=== PATIENT | female | born 1985 | race Caucasian/White ===

== ENCOUNTER 2016-09-09 10:18 | Observation (INO) | payer BC ==
--- NOTE | 2016-09-09 10:53 | EDM.PDOC ---
[id number] 4d CHEST PAIN Time Seen by Provider: 09/09/16 10:38 Source of Information: Reports: Patient, Family History Limitations: Reports: No Limitations - History of Present Illness INITIAL COMMENTS - FREE TEXT/NARRATIVE: pt arrived with chest pain and pressure over her left chest. She felt like her heart is racing. Onset: Sudden Duration: Hour(s):, Other (pt has chest pressure) Location: Reports: Chest Quality: Reports: Sharp, Stabbing Severity: Moderate Associated Symptoms: Reports: Chest Pain, Other (pt feels like she has palpatation.) Chest Pain Score (Numeric/FACES): 3 - Related Data Allergies Allergy/AdvReac Type Severity Reaction Status Date / Time No Known Allergies Allergy Verified 09/09/16 10:30 Home Meds: Home Meds NK [No Known Home Meds] 09/09/16 [History] Past Medical History Cardiovascular History: Reports: Other (See Below) Other Cardiovascular History: Manley syndrome. 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: Social & Family History - Tobacco Use Smoking Status *Q: Never Smoker - Recreational Drug Use Recreational Drug Use: No ED ROS GENERAL - Review of Systems Review Of Systems: See Below Constitutional: Reports: No Symptoms HEENT: Reports: No Symptoms Respiratory: Reports: No Symptoms Cardiovascular: Reports: Other ( chest pressure) Endocrine: Reports: No Symptoms GI/Abdominal: Reports: No Symptoms : Reports: No Symptoms Musculoskeletal: Reports: No Symptoms Skin: Reports: No Symptoms Neurological: Reports: No Symptoms ED EXAM, GENERAL - Physical Exam Exam: See Below Free Text/Narrative:: pt arrived feeling like her heart is racing and she has pressure across her entire ches. Exam Limited By: No Limitations General Appearance: Alert, Anxious, Moderate Distress, Other (pt is having pain accross he entire chest. ) Eye Exam: Right Eye: Papilledema Ears: Normal TMs Ear Exam: Bilateral Ear: Auricle Normal, Canal Normal, TM normal Nose: Normal Inspection Throat/Mouth: Normal Inspection Head: Atraumatic Neck: Normal Inspection Respiratory/Chest: No Respiratory Distress Cardiovascular: Irregularly Irregular, Other (pt is rapid at times) GI/Abdominal: Soft, Non-Tender Rectal (Female) Exam: Deferred Back Exam: Normal Inspection Extremities: Normal Inspection Neurological: Alert, Oriented, Normal Cognition Psychiatric: Normal Affect Course - Vital Signs Last Recorded V/S: Last Vital Signs Temp 36.6 C 09/10/16 07:44 Pulse 56 L 09/10/16 07:44 Resp 16 09/10/16 07:44 BP 107/75 09/10/16 07:44 Pulse Ox 96 09/10/16 07:44 - Orders/Labs/Meds Labs: Laboratory Tests 09/09/16 09/09/16 09/09/16 Range/Units 10:42 10:42 11:03 WBC 8.1 (4.5-11.0) K/uL RBC 4.52 (3.30-5.50) M/uL Hgb 13.7 (12.0-15.0) g/dL Hct 40.2 (36.0-48.0) % MCV 89 (80-98) fL MCH 30 (27-31) pg MCHC 34 (32-36) % Plt Count 249 (150-400) K/uL Neut % (Auto) 65 (36-66) % Lymph % (Auto) 24 (24-44) % Kings % (Auto) 9 H (2-6) % Eos % (Auto) 2 (2-4) % Baso % (Auto) 1 (0-1) % Sodium 141 (140-148) mmol/L Potassium 3.3 L (3.6-5.2) mmol/L Chloride 105 (100-108) mmol/L Carbon Dioxide 24 (21-32) mmol/L Anion Gap 15.3 H (5.0-14.0) mmol/L BUN 7 (7-18) mg/dL Creatinine 0.6 (0.6-1.0) mg/dL Est Cr Clr Drug Dosing 129.51 mL/min Estimated GFR (MDRD) > 60 (>60) Glucose 84 (74-106) mg/dL Calcium 8.7 (8.5-10.1) mg/dL Magnesium (1.8-2.4) mg/dL Total Bilirubin 0.6 (0.2-1.0) mg/dL AST 19 (15-37) U/L ALT 17 (12-78) U/L Alkaline Phosphatase 53 (46-116) U/L Troponin I 0.051 (0.000-0.056) ng/mL C-Reactive Protein (0.0-0.3) mg/dL Total Protein 7.4 (6.4-8.2) g/dL Albumin 4.1 (3.4-5.0) g/dL Globulin 3.3 (2.3-3.5) g/dL Albumin/Globulin Ratio 1.2 (1.2-2.2) Urine Color Yellow Urine Appearance Slightly cloudy Urine pH 7.0 (4.5-8.0) Ur Specific [place] 1.015 (1.008-1.030) Urine Protein Negative (NEGATIVE) mg/dL Urine Glucose (UA) Normal (NEGATIVE) mg/dL Urine Ketones Negative (NEGATIVE) mg/dL Urine Occult Blood Negative (NEGATIVE) Urine Nitrite Negative (NEGATIVE) Urine Bilirubin Negative (NEGATIVE) Urine Urobilinogen Normal (NORMAL) mg/dL Ur Leukocyte Esterase Negative (NEGATIVE) Urine RBC 0-5 (0-5) Urine WBC 0-5 (0-5) Ur Epithelial Cells Moderate Amorphous Sediment Not seen Urine Bacteria Not seen Urine Mucus Moderate 09/09/16 09/09/16 Range/Units 11:23 12:26 WBC (4.5-11.0) K/uL RBC (3.30-5.50) M/uL Hgb (12.0-15.0) g/dL Hct (36.0-48.0) % MCV (80-98) fL MCH (27-31) pg MCHC (32-36) % Plt Count (150-400) K/uL Neut % (Auto) (36-66) % Lymph % (Auto) (24-44) % Kings % (Auto) (2-6) % Eos % (Auto) (2-4) % Baso % (Auto) (0-1) % Sodium (140-148) mmol/L Potassium (3.6-5.2) mmol/L Chloride (100-108) mmol/L Carbon Dioxide (21-32) mmol/L Anion Gap (5.0-14.0) mmol/L BUN (7-18) mg/dL Creatinine (0.6-1.0) mg/dL Est Cr Clr Drug Dosing mL/min Estimated GFR (MDRD) (>60) Glucose (74-106) mg/dL Calcium (8.5-10.1) mg/dL Magnesium 1.9 (1.8-2.4) mg/dL Total Bilirubin (0.2-1.0) mg/dL AST (15-37) U/L ALT (12-78) U/L Alkaline Phosphatase (46-116) U/L Troponin I (0.000-0.056) ng/mL C-Reactive Protein 0.17 (0.0-0.3) mg/dL Total Protein (6.4-8.2) g/dL Albumin (3.4-5.0) g/dL Globulin (2.3-3.5) g/dL Albumin/Globulin Ratio (1.2-2.2) Urine Color Urine Appearance Urine pH (4.5-8.0) Ur Specific [place] (1.008-1.030) Urine Protein (NEGATIVE) mg/dL Urine Glucose (UA) (NEGATIVE) mg/dL Urine Ketones (NEGATIVE) mg/dL Urine Occult Blood (NEGATIVE) Urine Nitrite (NEGATIVE) Urine Bilirubin (NEGATIVE) Urine Urobilinogen (NORMAL) mg/dL Ur Leukocyte Esterase (NEGATIVE) Urine RBC (0-5) Urine WBC (0-5) Ur Epithelial Cells Amorphous Sediment Urine Bacteria Urine Mucus Meds: Medications Discontinued Medications Generic Name Dose Route Start Last Admin Trade Name Freq PRN Reason Stop Dose Admin Acetaminophen 650 mg 09/09/16 14:33 09/10/16 07:27 Tylenol PO 650 mg Q4H PRN Administration Pain (Mild 1-3)/fever Aspirin 324 mg 09/09/16 11:22 09/09/16 11:33 Aspirin PO 09/09/16 11:23 324 mg ONETIME ONE Administration Hydromorphone HCl 0.5 mg 09/09/16 12:51 09/09/16 12:55 Dilaudid IVPUSH 09/09/16 12:52 0.5 mg ONETIME ONE Administration Sodium Chloride 1,000 mls @ 400 mls/hr 09/09/16 12:00 09/09/16 12:13 Normal Saline IV 400 mls/hr ASDIRECTED LUKE Administration Ibuprofen 600 mg 09/09/16 14:33 09/10/16 09:37 Motrin PO 600 mg Q6H PRN Administration Pain/Fever Ketorolac Tromethamine 30 mg 09/09/16 11:57 09/09/16 12:17 Toradol IVPUSH 09/09/16 11:58 30 mg ONETIME ONE Administration Lorazepam 0.5 mg 09/09/16 14:33 Ativan PO Q4H PRN Anxiety Ondansetron HCl 4 mg 09/09/16 14:33 Zofran Odt PO Q6H PRN Nausea able to take PO Potassium Chloride 20 meq 09/09/16 11:13 09/09/16 11:33 Klor-Con M20 PO 09/09/16 11:14 20 meq ONETIME ONE Administration Potassium Chloride 40 meq 09/10/16 09:30 09/10/16 10:23 Klor-Con M20 PO 09/10/16 09:31 40 meq ONETIME ONE Administration - Re-Assessments/Exams Free Text/Narrative Re-Assessment/Exam: 09/09/16 13:13 Pt has a trop at the upper limits of normal, her k was borderline, She has continued to have the pressure. She was given torodol 30mg iv with no relief. She was given asa. She was given dilaudid .5 iv. Her chest xray did not show acute changes, Departure - Departure Time of Disposition: 07:45 Disposition: Admitted As Inpatient 68 Reason for Transfer *Q: Primary PCI Indicated Condition: Fair Clinical Impression: Dysrhythmia, Chest pain
[2016-09-09] MEDS ORDERED: Potassium Chloride 20 MEQ Tab.ER PO ONE (11:13)
[2016-09-09] MEDS ORDERED: Aspirin 81 MG Tab.Chew PO ONE (11:22)
[2016-09-09] MEDS ORDERED: Ketorolac 30 MG/ML SDV IVPUSH ONE (11:57)
[2016-09-09] MEDS ORDERED: Sodium Chloride 0.9% 1,000 ML IV SCH (12:00)
[2016-09-09] MEDS ORDERED: HYDROmorphone 0.5 MG/0.5 ML Syringe IVPUSH ONE (12:51)
--- NOTE | 2016-09-09 14:10 | PCM.HP ---
H&P History of Present Illness - General Date of Service: 09/09/16 Admit Problem/Dx: Admission Diagnosis/Problem Admission Diagnosis/Problem Chest tightness Source of Information: Patient, Family, Provider History Limitations: Reports: No Limitations - History of Present Illness Initial Comments - Free Text/Narative: Linda presents to the emergency room today with sensation that her heart is pounding as well as central chest pressure and dizziness. She first noticed the symptoms this morning when she woke up and they have not improved but have actually gotten worse since she has been awake. The chest pressure is moderate in nature and radiates slightly to her left upper chest and shoulder area she is not aware of obvious exacerbating factors. No change with positions. She did not take anything to make it better at home. She does not feel short of breath. She has not had any fevers or chills. Everything had been normal up until onset of symptoms this morning. No change in bowel or bladder habits. She does report a history of similar episodes although this one seems to be more intense. She does report that she had a couple of beers last night at a campfire but has had 2 beers in an evening in the past and not had any symptoms like this. Workup in the emergency room reassuring including 2 EKGs that are unchanged from the past. Troponin level is normal but at the upper limits of normal. She continues to have significant chest tightness but otherwise is hemodynamically stable. She'll be admitted for observation and additional workup. Chest Pain Score (Numeric/FACES): 3 - Related Data Allergies/Adverse Reactions: Allergies Allergy/AdvReac Type Severity Reaction Status Date / Time No Known Allergies Allergy Verified 09/09/16 10:30 Home Medications: Home Meds NK [No Known Home Meds] 09/09/16 [History] Past Medical History Cardiovascular History: Reports: Other (See Below) Other Cardiovascular History: Manley syndrome. 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 Pertinent positives and negatives are noted in the history of present illness. All other systems were reviewed and were negative except as noted. Exam - Exam Exam: See Below - Vital Signs Vital Signs: Last Vital Signs Temp 36.8 C 09/09/16 10:28 Pulse 60 09/09/16 11:38 Resp 16 09/09/16 11:38 BP 132/78 09/09/16 11:38 Pulse Ox 94 L 09/09/16 11:38 Weight: 74.6 kg - Exam Quality Assessment: No: Supplemental Oxygen General: Alert, Oriented, Cooperative. No: Mild Distress HEENT: Conjunctiva Clear, Normal Nasal Septum, Posterior Pharynx Clear. No: Scleral Icterus Neck: Supple, Trachea Midline. No: Lymphadenopathy, Thyromegaly Lungs: Clear to Auscultation, Normal Respiratory Effort Cardiovascular: Regular Rate, Regular Rhythm, Normal S1, Normal S2. No: Systolic Murmur, Rubs Abdomen: Normal Bowel Sounds, Soft. No: Distention, Tenderness Back Exam: Normal Inspection, Full Range of Motion Extremities: Normal Inspection, Normal Pulses. No: Cyanosis Peripheral Pulses: 2+: Dorsalis Pedis (L), Dorsalis Pedis (R) Skin: Warm, Dry. No: Rash Neuro Extensive - Mental Status: Alert, Oriented x3, Nl Response to Commands Neuro Extensive - Motor, Sensory, Reflexes: CN II-XII Intact. No: Dysarthria, Abnormal Motor, Tremor Psychiatric: Alert, Normal Affect - Patient Data Lab Results last 24 hrs: Laboratory Results - last 24 hr 09/09/16 09/09/16 09/09/16 Range/Units 10:42 10:42 11:03 WBC 8.1 (4.5-11.0) K/uL RBC 4.52 (3.30-5.50) M/uL Hgb 13.7 (12.0-15.0) g/dL Hct 40.2 (36.0-48.0) % MCV 89 (80-98) fL MCH 30 (27-31) pg MCHC 34 (32-36) % Plt Count 249 (150-400) K/uL Neut % (Auto) 65 (36-66) % Lymph % (Auto) 24 (24-44) % [place] % (Auto) 9 H (2-6) % Eos % (Auto) 2 (2-4) % Baso % (Auto) 1 (0-1) % Sodium 141 (140-148) mmol/L Potassium 3.3 L (3.6-5.2) mmol/L Chloride 105 (100-108) mmol/L Carbon Dioxide 24 (21-32) mmol/L Anion Gap 15.3 H (5.0-14.0) mmol/L BUN 7 (7-18) mg/dL Creatinine 0.6 (0.6-1.0) mg/dL Est Cr Clr Drug Dosing 129.51 mL/min Estimated GFR (MDRD) > 60 (>60) Glucose 84 (74-106) mg/dL Calcium 8.7 (8.5-10.1) mg/dL Magnesium (1.8-2.4) mg/dL Total Bilirubin 0.6 (0.2-1.0) mg/dL AST 19 (15-37) U/L ALT 17 (12-78) U/L Alkaline Phosphatase 53 (46-116) U/L Troponin I 0.051 (0.000-0.056) ng/mL C-Reactive Protein (0.0-0.3) mg/dL Total Protein 7.4 (6.4-8.2) g/dL Albumin 4.1 (3.4-5.0) g/dL Globulin 3.3 (2.3-3.5) g/dL Albumin/Globulin Ratio 1.2 (1.2-2.2) Urine Color Yellow Urine Appearance Slightly cloudy Urine pH 7.0 (4.5-8.0) Ur Specific [place] 1.015 (1.008-1.030) Urine Protein Negative (NEGATIVE) mg/dL Urine Glucose (UA) Normal (NEGATIVE) mg/dL Urine Ketones Negative (NEGATIVE) mg/dL Urine Occult Blood Negative (NEGATIVE) Urine Nitrite Negative (NEGATIVE) Urine Bilirubin Negative (NEGATIVE) Urine Urobilinogen Normal (NORMAL) mg/dL Ur Leukocyte Esterase Negative (NEGATIVE) Urine RBC 0-5 (0-5) Urine WBC 0-5 (0-5) Ur Epithelial Cells Moderate Amorphous Sediment Not seen Urine Bacteria Not seen Urine Mucus Moderate 09/09/16 09/09/16 Range/Units 11:23 12:26 WBC (4.5-11.0) K/uL RBC (3.30-5.50) M/uL Hgb (12.0-15.0) g/dL Hct (36.0-48.0) % MCV (80-98) fL MCH (27-31) pg MCHC (32-36) % Plt Count (150-400) K/uL Neut % (Auto) (36-66) % Lymph % (Auto) (24-44) % [place] % (Auto) (2-6) % Eos % (Auto) (2-4) % Baso % (Auto) (0-1) % Sodium (140-148) mmol/L Potassium (3.6-5.2) mmol/L Chloride (100-108) mmol/L Carbon Dioxide (21-32) mmol/L Anion Gap (5.0-14.0) mmol/L BUN (7-18) mg/dL Creatinine (0.6-1.0) mg/dL Est Cr Clr Drug Dosing mL/min Estimated GFR (MDRD) (>60) Glucose (74-106) mg/dL Calcium (8.5-10.1) mg/dL Magnesium 1.9 (1.8-2.4) mg/dL Total Bilirubin (0.2-1.0) mg/dL AST (15-37) U/L ALT (12-78) U/L Alkaline Phosphatase (46-116) U/L Troponin I (0.000-0.056) ng/mL C-Reactive Protein 0.17 (0.0-0.3) mg/dL Total Protein (6.4-8.2) g/dL Albumin (3.4-5.0) g/dL Globulin (2.3-3.5) g/dL Albumin/Globulin Ratio (1.2-2.2) Urine Color Urine Appearance Urine pH (4.5-8.0) Ur Specific [place] (1.008-1.030) Urine Protein (NEGATIVE) mg/dL Urine Glucose (UA) (NEGATIVE) mg/dL Urine Ketones (NEGATIVE) mg/dL Urine Occult Blood (NEGATIVE) Urine Nitrite (NEGATIVE) Urine Bilirubin (NEGATIVE) Urine Urobilinogen (NORMAL) mg/dL Ur Leukocyte Esterase (NEGATIVE) Urine RBC (0-5) Urine WBC (0-5) Ur Epithelial Cells Amorphous Sediment Urine Bacteria Urine Mucus Result Diagrams: 09/09/16 10:42 09/09/16 10:42 Imaging Impressions last 24 hrs: CXR - images personally reviewed - no mass, infiltrate, effusion or cardiomegally EKG INTERPRETATION EKG Date: 09/09/16 Rhythm: NSR Rate (beats/min): 67 [place]: normal P-wave: present QRS: normal ST-T: elevated (II, III, aVF) Comparison: no change EKG Interpretation Comments: images were personally reviewed. There is no change in either EKG today and they appear similar to EKG from 08/30/2013 *Q Meaningful Use (ADM) - VTE *Q VTE Criteria *Q: - VTE Risk Assess *Q Each Risk Factor Represents 1 Point: None Total Score 1 Point Risk Factors: 0 Each Risk Factor Represents 2 Points: None Total Score 2 Point Risk Factors: 0 Each Risk Factor Represents 3 Points: None Total Score 3 Point Risk Factors: 0 Each Risk Factor Represents 5 Points: None Total Score 5 Point Risk Factors: 0 Venous Thromboembolism Risk Factor Score *Q: 0 - Stroke *Q Stroke Criteria *Q: - AMI *Q AMI Criteria *Q: - Problem List (1) Chest pressure SNOMED Code(s): 982427471 ICD Code: R07.89 - OTHER CHEST PAIN Status: Acute Current Visit: Yes (2) Dizziness SNOMED Code(s): 931561256, 630483571 ICD Code: R42 - DIZZINESS AND GIDDINESS Status: Acute Current Visit: Yes (3) Palpitations SNOMED Code(s): 02313274, 695662954 ICD Code: R00.2 - PALPITATIONS Status: Acute Current Visit: Yes Problem List Initiated/Reviewed/Updated: Yes Orders Last 24hrs: Active Orders 24 hr Category Date Time Status Patient Status Manage Transfer [TRANSFER] Routine ADT 09/09/16 13:58 Ordered EKG Documentation Completion [RC] ASDIRECTED Care 09/09/16 10:33 Active EKG Documentation Completion [RC] ASDIRECTED Care 09/09/16 13:15 Active Chest 2V [CR] Stat Exams 09/09/16 11:48 Taken Sodium Chloride 0.9% [Normal Saline] 1,000 ml Med 09/09/16 12:00 Active IV ASDIRECTED Resuscitation Status Routine Resus Stat 09/09/16 13:59 Ordered EKG 12 Lead [EK] Routine Ther 09/09/16 10:33 Ordered EKG 12 Lead [EK] Routine Ther 09/09/16 13:15 Ordered Medication Orders Sodium Chloride (Normal Saline) 1,000 mls @ 400 mls/hr IV ASDIRECTED [facility] Last Admin: 09/09/16 12:13 Dose: 400 mls/hr Assessment/Plan Comment:: Assessment and plan - Chest pressure with palpitations and dizziness - workup unremarkable other than a troponin level that is at the upper limits of normal and a few PACs noted on cardiac monitoring. Patient reports significant symptoms and does not feel comfortable going home given the severity of the dizziness and chest tightness. Pain has not been relieved by Toradol and only minimally improved with hydromorphone. Exact etiology is elusive at this time. She has a history of similar episodes with an extensive workup that was unremarkable including workup in [place] and at the [facility]. Differential could include pericarditis/ myocarditis versus transient arrhythmia versus inflammatory versus toxic/ metabolic versus other. Pulmonary embolism very unlikely given the relative bradycardia and lack of hypoxia. CRP is normal. -Admit for observation -Telemetry -Sedimentation rate -Echo in the morning -Pain control Maintenance issues - - DVT prophylaxis - mechanical - GI prophylaxis -not indicated - Nutrition - regular diet - Up catheter - not indicated CODE STATUS - full code Admission justification - patient will be referred observation status for cardiac monitoring, echocardiogram and additional management Disposition - anticipate discharge to home tomorrow Primary care physician - [place] in [place] Magan Burton M.D.
[2016-09-09] MEDS ORDERED: Ibuprofen 600 MG Tab PO PRN (14:33)
[2016-09-09] MEDS ORDERED: LORazepam 0.5 MG Tab PO PRN (14:33)
[2016-09-09] MEDS ORDERED: Ondansetron 4 MG Tab.DIS PO PRN (14:33)
[2016-09-09] MEDS: Acetaminophen 325 MG Tab PO PRN (19:26)
[2016-09-10] MEDS: Acetaminophen 325 MG Tab PO PRN (07:27)
[2016-09-10 07:45] VITALS: BP 107/75
--- NOTE | 2016-09-10 08:54 | CR ---
Chest 2V INDICATION: chest pain FINDINGS: Negative chest.
[2016-09-10] MEDS ORDERED: Potassium Chloride 20 MEQ Tab.ER PO ONE (09:30)
--- NOTE | 2016-09-10 11:54 | PCM.DCSUM1 ---
Discharge Summary - Hospital Course Brief History: This patient is a 31-year-old woman who was admitted through the emergency department for further evaluation and management of chest pain and palpitations. - Discharge Data Discharge Date: 09/10/16 Discharge Disposition: Home, Self-Care 01 Condition: Good - Discharge Diagnosis/Problem(s) (1) Chest pressure SNOMED Code(s): 175854861 ICD Code: R07.89 - OTHER CHEST PAIN Status: Acute (2) Dizziness SNOMED Code(s): 527723436, 101083518 ICD Code: R42 - DIZZINESS AND GIDDINESS Status: Acute (3) Palpitations SNOMED Code(s): 83247911, 633034184 ICD Code: R00.2 - PALPITATIONS Status: Acute - Patient Summary/Data Hospital Course: This patient is a 31-year-old woman who developed symptoms of chest pain and palpitations on the morning of admission. She presented to the emergency department for further evaluation and management. She has a previous history of similar symptoms and is undergone fairly extensive cardiac evaluation through her primary care provider as well as at the [facility] in [facility]. Telemetry monitoring and EKG obtained in the emergency department showed no acute abnormalities, initial and follow-up troponin levels were within normal range. She was admitted to the hospital on observation status, telemetry monitoring showed no acute rhythm abnormalities. By the following morning her chest pain had significantly improved although not totally resolved. She will be discharged to home, activity will be as tolerated and she will resume her usual diet. 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 Echocardiogram had been obtained on the morning of discharge and formal report is not available at this time, but will be followed up on as it becomes available. 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 - Discharge Plan Home Medications: Home Meds NK [No Known Home Meds] 09/09/16 [History] Forms: ED Department Discharge Referrals: Zuleyka Yeh DO [Primary Care Provider] - - Patient Data Vitals - Most Recent: Last Vital Signs Temp 97.8 F 09/10/16 07:44 Pulse 56 L 09/10/16 07:44 Resp 16 09/10/16 07:44 BP 107/75 09/10/16 07:44 Pulse Ox 96 09/10/16 07:44 Weight - Most Recent: 164 lb 7.437 oz I&O - Last 24 hours: Intake & Output 09/09/16 09/10/16 09/10/16 22:59 06:59 14:59 Intake Total 300 Output Total 300 Balance -300 300 Lab Results - Last 24 hrs: Laboratory Results - last 24 hr 09/09/16 09/09/16 09/10/16 Range/Units 14:33 17:04 05:52 WBC 6.4 (4.5-11.0) K/uL RBC 4.21 (3.30-5.50) M/uL Hgb 12.6 (12.0-15.0) g/dL Hct 37.9 (36.0-48.0) % MCV 90 (80-98) fL MCH 30 (27-31) pg MCHC 33 (32-36) % Plt Count 234 (150-400) K/uL ESR 9 (0-25) mm/hr Sodium (140-148) mmol/L Potassium (3.6-5.2) mmol/L Chloride (100-108) mmol/L Carbon Dioxide (21-32) mmol/L Anion Gap (5.0-14.0) mmol/L BUN (7-18) mg/dL Creatinine (0.6-1.0) mg/dL Est Cr Clr Drug Dosing mL/min Estimated GFR (MDRD) (>60) Glucose (74-106) mg/dL Calcium (8.5-10.1) mg/dL Troponin I 0.056 (0.000-0.056) ng/mL 09/10/16 Range/Units 05:52 WBC (4.5-11.0) K/uL RBC (3.30-5.50) M/uL Hgb (12.0-15.0) g/dL Hct (36.0-48.0) % MCV (80-98) fL MCH (27-31) pg MCHC (32-36) % Plt Count (150-400) K/uL ESR (0-25) mm/hr Sodium 141 (140-148) mmol/L Potassium 3.3 L (3.6-5.2) mmol/L Chloride 107 (100-108) mmol/L Carbon Dioxide 25 (21-32) mmol/L Anion Gap 12.3 (5.0-14.0) mmol/L BUN 10 (7-18) mg/dL Creatinine 0.6 (0.6-1.0) mg/dL Est Cr Clr Drug Dosing 134.54 mL/min Estimated GFR (MDRD) > 60 (>60) Glucose 88 (74-106) mg/dL Calcium 8.7 (8.5-10.1) mg/dL Troponin I (0.000-0.056) ng/mL Med Orders - Current: Current Medications Discontinued Medications Acetaminophen (Tylenol) 650 mg PO Q4H PRN PRN Reason: Pain (Mild 1-3)/fever Last Admin: 09/10/16 07:27 Dose: 650 mg Aspirin (Aspirin) 324 mg PO ONETIME ONE Stop: 09/09/16 11:23 Last Admin: 09/09/16 11:33 Dose: 324 mg Hydromorphone HCl (Dilaudid) 0.5 mg IVPUSH ONETIME ONE Stop: 09/09/16 12:52 Last Admin: 09/09/16 12:55 Dose: 0.5 mg Sodium Chloride (Normal Saline) 1,000 mls @ 400 mls/hr IV ASDIRECTED [facility] Last Admin: 09/09/16 12:13 Dose: 400 mls/hr Ibuprofen (Motrin) 600 mg PO Q6H PRN PRN Reason: Pain/Fever Last Admin: 09/10/16 09:37 Dose: 600 mg Ketorolac Tromethamine (Toradol) 30 mg IVPUSH ONETIME ONE Stop: 09/09/16 11:58 Last Admin: 09/09/16 12:17 Dose: 30 mg Lorazepam (Ativan) 0.5 mg PO Q4H PRN PRN Reason: Anxiety Ondansetron HCl (Zofran Odt) 4 mg PO Q6H PRN PRN Reason: Nausea able to take PO Potassium Chloride (Klor-Con M20) 20 meq PO ONETIME ONE Stop: 09/09/16 11:14 Last Admin: 09/09/16 11:33 Dose: 20 meq Potassium Chloride (Klor-Con M20) 40 meq PO ONETIME ONE Stop: 09/10/16 09:31 Last Admin: 09/10/16 10:23 Dose: 40 meq *Q Meaningful Use (DIS) - VTE *Q VTE Criteria *Q: - Stroke *Q Stroke Criteria *Q: - AMI *Q AMI Criteria *Q:
== END 2016-09-10 11:45 | disposition home or self-care (01) ==
LOC: JP.ED 10:18 → JP.MS 13:58
PROVIDERS: ADMIT Internal Medicine; ATTEND Hospitalist
DX: R07.89 Other chest pain (principal); R42 Dizziness and giddiness; R00.2 Palpitations; J45.909 Unspecified asthma, uncomplicated
CPT/HCPCS: 36415; 71020; 80048; 80053; 81001; 83735; 84484; 85025; 85027; 85651; 86140; 93005; 93306; 96361; 96374; 96375; 99285; A9270; G0378; J1170; J1885; J7040

== ENCOUNTER 2024-10-18 06:55 | Emergency (ER) | payer BC, OTHER ==
[2024-10-18 07:11] VITALS: BP 141/100; PULSE 121
[2024-10-18 07:25] LABS: BASOPHILS ABSOLUTE AUTO 0.05 K/uL (0.00-0.10); BASOPHILS PERCENT AUTO 0.6 % (0.1-1.3); EOSINOPHILS ABSOLUTE AUTO 0.10 K/uL (0.00-0.40); EOSINOPHILS PERCENT AUTO 1.2 % (0.0-5.4); IMMATURE GRAN ABSOLUTE AUTO 0.03 K/uL (0.00-0.23); IMMATURE GRAN PERCENT AUTO 0.4 % (0.0-0.7); LYMPHOCYTES ABSOLUTE AUTO 2.02 K/uL (0.8-3.3); LYMPHOCYTES PERCENT AUTO 23.8 % (11.4-47.7); MONOCYTES ABSOLUTE AUTO 0.57 K/uL (0.20-0.90); MONOCYTES PERCENT AUTO 6.7 % (3.3-12.6); NEUTROPHILS ABSOLUTE AUTO 5.71 K/uL (1.0-7.6); NEUTROPHILS PERCENT AUTO 67.3 % (40.0-78.1); PLATELET COUNT,PLT 209 K/uL (130-375); RED BLOOD CELL COUNT 4.51 M/uL (3.77-5.24); WHITE BLOOD CELL COUNT,WBC 8.5 K/uL (3.2-11.0)
[2024-10-18 07:26] LABS: APPEARANCE,URINE CLOUDY (CLEAR); GLUCOSE,URINE NEGATIVE (NEGATIVE); OCCULT BLOOD,URINE LARGE (NEGATIVE)
[2024-10-18 07:31] LABS: EPITHELIAL CELLS,URINE FEW
[2024-10-18 08:06] LABS: A/G RATIO 1.0 (1.2-2.2); ALANINE AMINOTRANSFERASE,ALT 17 U/L (12-78); ASPARTATE AMNIOTRANSFERASE,AST 13 U/L (15-37); BILIRUBIN TOTAL 0.8 mg/dL (0.2-1.0); BLOOD UREA NITROGEN,BUN 9 mg/dL (7-18); CARBON DIOXIDE,CO2 26 mmol/L (21-32); CHLORIDE,CL 103 mmol/L (100-108); CREATININE 0.5 mg/dL (0.6-1.0); ESTIMATED GFR 124 mL/min (>60); GLUCOSE RANDOM 123 mg/dL (74-106); HCG QUANTITATIVE 122841 mIU/mL (0-6); POTASSIUM,K 3.4 mmol/L (3.6-5.2); PROTEIN TOTAL,TP 7.3 g/dL (6.4-8.2); SODIUM,NA 137 mmol/L (140-148)
== END 2024-10-18 07:40 ==
LOC: JP.ED 06:55
DX: O20.9 Hemorrhage in early pregnancy, unspecified (principal); Z3A.08 8 weeks gestation of pregnancy
CPT/HCPCS: 36415; 80053; 81001; 84702; 85025; 86900; 86901; 99284